=== PATIENT | male | born 1975 | race Caucasian/White ===

== ENCOUNTER 2017-06-09 16:29 | Observation (INO) | payer BC ==
[~2017-06-09] VITALS: Ht 175.3 cm; Wt 84.8 kg
[2017-06-09] VITALS (8 sets, daily range): BP systolic 107–126; BP diastolic 62–80
[2017-06-09 18:40] LABS: ALBUMIN 3.9 g/dL (3.4-5.0); ALBUMIN/GLOBULIN RATIO 1.1 (1.0-1.7); GFR 81.9; POTASSIUM 3.7 mmol/L (3.5-5.1); TOTAL BILIRUBIN 0.3 mg/dL (0.2-1.0); TOTAL PROTEIN 7.6 g/dL (6.4-8.2)
[2017-06-09] MEDS: IV NORMAL SALINE 1,000ML 1,000 ML IV SCH (18:44)
[2017-06-09 18:47] LABS: BASO # 0.1 x10^3/uL (0.0-0.2); BASO % 1 % (0-3); EOS # 0.1 x10^3/uL (0.0-0.7); EOS % 2 % (0-3); HEMATOCRIT 22.3 % (39.0-53.0); LYMPH # 2.4 x10^3/uL (1.0-4.8); LYMPH % 26 % (24-48); MEAN CORPUSCULAR HEMOGLOBIN 18 pg (25-35); MEAN CORPUSCULAR HGB CONC 29 g/dL (31-37); MEAN CORPUSCULAR VOLUME 60 fL (79-100); MONO # 0.7 x10^3/uL (0.0-1.1); MONO % 7 % (0-9); NEUT # 5.8 x10^3uL (1.8-7.7); NEUT % 64 % (31-73); PLATELET COUNT 488 x10^3/uL (140-400); RED BLOOD COUNT 3.71 x10^6/uL (4.30-5.70); RED CELL DISTRIBUTION WIDTH 17.6 % (11.5-14.5); WHITE BLOOD COUNT 9.1 x10^3/uL (4.0-11.0)
[2017-06-09 18:58] LABS: HEMOGLOBIN 6.5 g/dL (13.0-17.5)
[2017-06-09] MEDS ORDERED: FAMO-63 PO (19:09)
[2017-06-09 22:52] LABS: BILIRUBIN,URINE NEG (NEG); CLARITY,URINE CLEAR; COLOR,URINE STRAW; GLUCOSE,URINE NEG (NEG)
[2017-06-09 22:53] LABS: BACTERIA,URINE 0 /HPF (0-FEW); NITRITE,URINE NEG (NEG); RBC,URINE 0 /HPF (0-2); UROBILINOGEN,URINE 0.2 mg/dL (0.2 mg/dL); WBC,URINE 0 /HPF (0-4)
[2017-06-09 23:01] LABS: ANISOCYTOSIS SLIGHT; HYPOCHROMIA MOD; MICROCYTOSIS MOD; OVALOCYTES FEW; PLT ESTIMATE INCREASED (ADEQUATE); POLYCHROMASIA PRESENT; TARGET CELLS OCC; TEAR DROP CELLS OCC
[2017-06-10] VITALS (10 sets, daily range): BP systolic 99–129; BP diastolic 52–76
[2017-06-10] MEDS: IV NORMAL SALINE 1,000ML 1,000 ML IV SCH ×3 (02:45→20:34)
[2017-06-10 07:16] LABS: BASO # 0.1 x10^3/uL (0.0-0.2); BASO % 1 % (0-3); EOS # 0.2 x10^3/uL (0.0-0.7); EOS % 3 % (0-3); HEMATOCRIT 22.5 % (39.0-53.0); LYMPH # 1.9 x10^3/uL (1.0-4.8); LYMPH % 27 % (24-48); MEAN CORPUSCULAR HEMOGLOBIN 19 pg (25-35); MEAN CORPUSCULAR HGB CONC 30 g/dL (31-37); MEAN CORPUSCULAR VOLUME 63 fL (79-100); MONO # 0.6 x10^3/uL (0.0-1.1); MONO % 8 % (0-9); NEUT # 4.5 x10^3uL (1.8-7.7); NEUT % 62 % (31-73); PLATELET COUNT 400 x10^3/uL (140-400); RED BLOOD COUNT 3.56 x10^6/uL (4.30-5.70); RED CELL DISTRIBUTION WIDTH 18.6 % (11.5-14.5); WHITE BLOOD COUNT 7.3 x10^3/uL (4.0-11.0)
[2017-06-10 07:22] LABS: HEMOGLOBIN 6.7 g/dL (13.0-17.5)
[2017-06-10 07:25] LABS: ALBUMIN 3.2 g/dL (3.4-5.0); CALCIUM 8.3 mg/dL (8.5-10.1); GFR 81.9; POTASSIUM 4.1 mmol/L (3.5-5.1); TOTAL BILIRUBIN 0.6 mg/dL (0.2-1.0); TOTAL PROTEIN 6.5 g/dL (6.4-8.2)
[2017-06-10] MEDS ORDERED: FLU VACC QS2017-18 (36MOS+)/PF 0.5 ML SYRINGE. VAX IM ONE (09:00)
[2017-06-10] MEDS: PANTOPRAZOLE 40 MG TABLET. PO SCH (09:15)
[2017-06-10] MEDS: SUCRALFATE 1 GM/10 ML ORAL.SUSP. PEG SCH ×3 (11:27→20:34)
[2017-06-10 11:52] LABS: FECAL OB PT POSITIVE (NEG)
--- NOTE | 2017-06-10 15:07 | RAD ---
Chest, 2 views, 06/10/2017: History: Shortness of breath The heart size and pulmonary vascularity are normal. No pulmonary infiltrates are seen. There is no evidence of pleural fluid. IMPRESSION: No acute cardiopulmonary abnormality is detected.
--- NOTE | 2017-06-10 15:26 | RAD ---
Gastrointestinal Bleeding Scintigraphy: 06/10/2017 Radiopharmaceutical: 30 mCi Tc-99m in vitro labeled autologous red blood cells I.V. History: Anemia, positive Hemoccult test. Comparison: None Findings: Following intravenous administration of Tc-99m labeled red cells, the anterior abdominal radionuclide angiogram is within normal limits without evidence of focal hyperperfusion within the abdomen or pelvis. Dynamic abdominal imaging was then performed for 4 minutes. Delayed dynamic abdominal imaging was then performed for 60 minutes delayed following radiotracer administration. No abnormal focus of labeled red cell extravasation is seen on any of these images. Impression: No evidence for active gastrointestinal bleeding.
[2017-06-10 16:31] LABS: HEMATOCRIT 28.8 % (39.0-53.0); HEMOGLOBIN 8.6 g/dL (13.0-17.5)
[2017-06-11] MEDS: IV NORMAL SALINE 1,000ML 1,000 ML IV SCH ×2 (02:45→04:24)
[2017-06-11 05:51] VITALS: BP 109/71
[2017-06-11 06:50] LABS: BASO % 1 % (0-3); EOS # 0.3 x10^3/uL (0.0-0.7); EOS % 4 % (0-3); HEMATOCRIT 27.3 % (39.0-53.0); HEMOGLOBIN 8.2 g/dL (13.0-17.5); LYMPH % 26 % (24-48); MEAN CORPUSCULAR HEMOGLOBIN 20 pg (25-35); MEAN CORPUSCULAR HGB CONC 30 g/dL (31-37); MEAN CORPUSCULAR VOLUME 67 fL (79-100); MONO # 0.7 x10^3/uL (0.0-1.1); MONO % 9 % (0-9); NEUT # 4.9 x10^3uL (1.8-7.7); NEUT % 61 % (31-73); PLATELET COUNT 364 x10^3/uL (140-400); RED BLOOD COUNT 4.07 x10^6/uL (4.30-5.70); RED CELL DISTRIBUTION WIDTH 24.7 % (11.5-14.5); WHITE BLOOD COUNT 7.9 x10^3/uL (4.0-11.0)
[2017-06-11] MEDS: SUCRALFATE 1 GM/10 ML ORAL.SUSP. PEG SCH (07:47)
[2017-06-11] MEDS: PANTOPRAZOLE 40 MG TABLET. PO SCH (07:47)
[2017-06-11] MEDS ORDERED: CHOLECALCIFEROL (VITAMIN D3) 1,000 UNIT TABLET PO SCH (09:30)
[2017-06-11] MEDS ORDERED: FERROUS SULFATE 325 MG TABLET. PO SCH (09:30)
[2017-06-11] MEDS ORDERED: PANT40TA5 PO (10:02)
[2017-06-11] MEDS ORDERED: CHOL10002 PO (10:02)
[2017-06-11] MEDS ORDERED: SUCR1ORA5 PEG (10:02)
[2017-06-11] MEDS ORDERED: FERR325T72 PO (10:02)
[2017-06-11 10:13] VITALS: BP 127/73
--- NOTE | 2017-06-11 13:16 | PN ---
DATE: 07/08/2017 SUBJECTIVE: A 41-year-old male in with anemia, difficult to note his actual, bleeding scan was negative. His hemoglobin after 2 units was up to 8.6 and 28. The patient's other labs looked basically stable except he was low on iron. Liver enzymes were normal, B12. His vitamin D was low. Other than that, basically stable there. His urine was negative for any signs of blood there and GI scan was negative, although 1 stool was positive for an occult bleed. The patient will be repeated his CBC in the morning. OBJECTIVE: VITAL SIGNS: Blood pressure right now 120/60, respiratory rate 20, pulse 70, afebrile. LUNGS: Clear. CARDIOVASCULAR: Stable. ABDOMEN: Soft, diffuse tenderness, but no rebound, no guarding. No active signs of any particular severe discomfort anywhere. EVELYN CHADWICK MD DR: DARA/latrice JOB#: [id number] / [id number]
--- NOTE | 2017-06-11 23:35 | DS ---
DATE OF DISCHARGE: 06/11/2017 HOSPITAL COURSE: A 41-year-old male came in with having marked lightheadedness, near syncope, generalized weakness, was found to have a hemoglobin of 6.5 and 22. The patient had 1 positive Hemoccult stool. Iron levels were low at 11. The patient's calcium slightly low at 8.3, vitamin D low at 17.6. The patient was transfused with 2 units of packed RBCs, 1 unit at a time per protocol. The patient made fairly good progress. His last hemoglobin was 8.2 and 27. He will be monitored carefully on this and a GI bleeding scan was negative, and consequently, the patient will be seen by Dr. Jaquez, soft top installer, for scoping and further evaluation. See MRAD. Decreased activity. IMPRESSION: Acute gastrointestinal bleed, near syncope, iron deficiency anemia, probably secondary to gastrointestinal bleed, thrombocytosis. DISCHARGE INSTRUCTIONS: The patient will follow up in 7-10 days or sooner as needed. EVELYN CHADWICK MD DR: DARA/nts JOB#: [id number] / [id number]
== END 2017-06-11 10:30 | disposition home or self-care (01) ==
LOC: 1 SOUTH 16:29 → INTOOBSV 16:29
PROVIDERS: ADMIT Family Medicine; ATTEND Family Medicine
DX: K29.01 Acute gastritis with bleeding (principal); D47.3 Essential (hemorrhagic) thrombocythemia; R55 Syncope and collapse; D50.9 Iron deficiency anemia, unspecified; K21.9 Gastro-esophageal reflux disease without esophagitis; R42 Dizziness and giddiness; R53.81 Other malaise
CPT/HCPCS: 36415; 71046; 78278; 80053; 81001; 82274; 82306; 82607; 82746; 83540; 83550; 83605; 84443; 85014; 85018; 85025; 85045; 85610; 85730; 86850; 86900; 86901; 86920; 87045; 87086; 96360; 96361; A9560; G0378; G0379; P9016; 96374; J7030